=== PATIENT | female | born 1965 | race Caucasian/White ===

== ENCOUNTER 2016-12-13 13:21 | Emergency (ER) | payer MEDICARE, OTHER ==
[2016-12-13 13:33] VITALS: BP 125/82; PULSE 84; TEMP 98.1; BMI 23.8
[2016-12-13] MEDS ORDERED: KETOROLAC TROMETHAMINE 60 MG/2 ML VIAL IM ONE (14:01)
[2016-12-13] MEDS ORDERED: CYCLOBENZAPRINE HCL 10 MG TABLET (FP) PO ONE (14:01)
--- NOTE | 2016-12-13 14:02 | PDOC ---
History of Present Illness - General Chief Complaint: Pain Stated Complaint: LT SIDE PAIN Time Seen by Provider: 12/13/16 13:55 History Source: Patient - History of Present Illness Occurred: reports: other Severity: reports: moderate Pain Location: reports: back Past History - Past Medical History Allergies/Adverse Reactions: Allergies Allergy/AdvReac Type Severity Reaction Status Date / Time No Known Allergies Allergy Verified 12/13/16 13:28 Home Medications: Ambulatory Orders Cyclobenzaprine HCl [Flexeril 10 mg] 10 mg PO TID PRN #9 tablet 12/13/16 Ibuprofen [Motrin -] 600 mg PO QID #28 tablet 12/13/16 Other medical history: NONE - Suicide/Smoking/Psychosocial Hx Smoking History: Never smoked Information on smoking cessation initiated: No Hx Alcohol Use: No Drug/Substance Use Hx: No Substance Use Type: None Trauma Specific PMHX - Complaint Specific PMHX Arthritis: No Back Injury: No Neck Injury: No Hx Sacro Iliac Joint Dysfunction: No Review of Systems - Review of Systems Constitutional: No: Chills, Fever ABD/GI: No: Nausea, Vomiting, Abdominal cramping : No: Dysuria, Flank Pain, Hematuria Musculoskeletal: Yes: Back Pain. No: Muscle Weakness *Physical Exam - Vital Signs Last Vital Signs Temp Pulse Resp BP Pulse Ox 98.1 F 84 18 125/82 100 12/13/16 13:30 12/13/16 13:30 12/13/16 13:30 12/13/16 13:30 12/13/16 13:30 - Physical Exam General Appearance: Yes: Appropriately Dressed, Mild Distress HEENT: positive: Normal Voice Neck: positive: Supple Respiratory/Chest: negative: Respiratory Distress Gastrointestinal/Abdominal: positive: Soft. negative: Tender, Pulsatile Mass Musculoskeletal: positive: Vertebral Tenderness (mild ttp to L mid back). negative: CVA Tenderness Extremity: positive: Normal Inspection Integumentary: positive: Dry, Warm Neurologic: positive: Fully Oriented, Alert, Normal Mood/Affect Medical Decision Making - Medical Decision Making 12/13/16 14:02 51 yo F, no sig hx, here w/ back pain. Pt complaining of left mid back pain that started several days ago, achy and non-radiating, with an intensity of 7 out of 10 and worse with movement. No dysuria, hematuria, nausea, vomiting, fever or chills, leg weakness, bowel or bladder incontinence or saddle anesthesia. Had similar pain last year that was treated with flexeril and naproxen, which relieved sxs per pt. No h/o renal stones See exam Back pain, recurrent M/l MSK, unlikely renal stone or infxn -pain control in ED>reassess 12/13/16 14:02 12/13/16 14:59 Pt feeling better, will dc w/ meds *DC/Admit/Observation/Transfer Diagnosis at time of Disposition: Low back pain Qualifiers: Chronicity: acute Back pain laterality: left Sciatica presence: without sciatica Qualified Code(s): M54.5 - Low back pain - Discharge Dispostion Disposition: HOME Condition at time of disposition: Improved - Prescriptions Prescriptions: Cyclobenzaprine HCl [Flexeril 10 mg] 10 mg PO TID PRN #9 tablet PRN Reason: Back Pain Ibuprofen [Motrin -] 600 mg PO QID #28 tablet - Referrals Referrals: Mallory Posada MD [Primary Care Provider] - - Patient Instructions Printed Discharge Instructions: DI for Low Back Pain Additional Instructions: Take medications as directed for pain and follow-up with your doctor
[2016-12-13] MEDS ORDERED: CYCLOBENZAPRINE HCL 10 MG TABLET (FP) ONE (14:06)
[2016-12-13] MEDS ORDERED: KETOROLAC TROMETHAMINE 60 MG/2 ML VIAL ONE (14:06)
== END 2016-12-13 15:05 | disposition home or self-care (01) ==
LOC: JERFT 13:21
PROC: 3E0233Z Introduction of Anti-inflammatory into Muscle, Percutaneous Approach (ICD-10-PCS; principal; 2016-12-13)
DX: M54.5 Low back pain (principal)
CPT/HCPCS: 96372; 99281-25

== ENCOUNTER 2017-08-19 09:53 | Emergency (ER) | payer OTHER ==
[2017-08-19 09:56] VITALS: BP 116/79; PULSE 99; TEMP 98.6; BMI 20.8
--- NOTE | 2017-08-19 10:26 | PDOC ---
History of Present Illness - General Chief Complaint: Vaginal Sxs Stated Complaint: URINARY PROBLEM Time Seen by Provider: 08/19/17 10:18 History Source: Patient Exam Limitations: No Limitations - History of Present Illness Initial Comments: 08/19/17 10:36 Came to emergency department for evaluation of white thick vaginal drainage and itching 2 days. Has had yeast infections in the past and feels has same. Has tried no medication for relief of symptoms. Denies fever, is not sexually active , no abdominal pain Timing/Duration: unsure, 24 hours Severity: mild, moderate Associated Symptoms: reports: denies symptoms Past History - Travel Traveled outside of the country in the last 30 days: No Close contact w/someone who was outside of country & ill: No - Past Medical History Allergies/Adverse Reactions: Allergies Allergy/AdvReac Type Severity Reaction Status Date / Time No Known Allergies Allergy Verified 08/19/17 09:54 Home Medications: Ambulatory Orders Fluconazole [Diflucan] 150 mg PO ONCE #2 tablet 08/19/17 COPD: No DVT: No - Suicide/Smoking/Psychosocial Hx Smoking History: Never smoked Have you smoked in the past 12 months: No Information on smoking cessation initiated: No Hx Alcohol Use: No Drug/Substance Use Hx: No Substance Use Type: None Review of Systems - Review of Systems Able to Perform ROS?: Yes Is the patient limited Tamazight proficient: Yes Constitutional: Yes: See HPI. No: Symptoms Reported, Chills, Fever, Loss of Appetite, Malaise HEENTM: No: Symptoms Reported Respiratory: No: Symptoms reported Musculoskeletal: Yes: Symptoms Reported Integumentary: Yes: Symptoms Reported, See HPI, Bruising (to right groin status post angiogram 10 days ago, is healing), Pruritus, Other All Other Systems: Reviewed and Negative *Physical Exam - Vital Signs Last Vital Signs Temp Pulse Resp BP Pulse Ox 98.6 F 99 H 18 116/79 97 08/19/17 09:54 08/19/17 09:54 08/19/17 09:54 08/19/17 09:54 08/19/17 09:54 - Physical Exam General Appearance: Yes: Nourished, Appropriately Dressed, Apparent Distress, Mild Distress HEENT: positive: WALLY, Normal ENT Inspection, TMs Normal, Pharynx Normal Neck: positive: Tender, Supple Respiratory/Chest: positive: Lungs Clear Cardiovascular: positive: Regular Rate Extremity: positive: Normal Inspection Integumentary: positive: Normal Color, Warm, Other (mild erythema noted to fall the, with white thick drainage noted. Knee and and vaginal vault. No ulcerations , no foul odor, internal exam deferred) Neurologic: positive: hvac lead II-XII NML intact, Fully Oriented, Alert, Normal Mood/ Affect, Normal Response, Motor Strength 5/5 *DC/Admit/Observation/Transfer Diagnosis at time of Disposition: Alexia infection - Discharge Dispostion Disposition: HOME Condition at time of disposition: Stable Decision to Admit order: No - Prescriptions Prescriptions: Fluconazole [Diflucan] 150 mg PO ONCE #2 tablet - Referrals Referrals: Mallory Posada MD [Primary Care Provider] - - Patient Instructions Printed Discharge Instructions: DI for Vaginal Yeast Infection Additional Instructions: Rest, drink lots of fluids: Teas, water, soups Avoid contact with others until fevers and symptoms resolved Lots of handwashing and good hygiene Continue [id number] medications for symptomatic relief- Monistat, vaginal cell, creams to help soothe itching and chafing Tylenol or Motrin for fever and pain Diflucan, 150 mg tablet 1 dose for treatment. May repeat in one week if symptoms not completely resolved Followup with private physician / [employer] doctor in one week for reevaluation Return to emergency department for worsened symptoms, fevers, dehydration - Post Discharge Activity Forms/Work/School Notes: Back to Work
== END 2017-08-19 10:52 | disposition home or self-care (01) ==
LOC: JERFT 09:53
DX: B37.3 Candidiasis of vulva and vagina (principal)
CPT/HCPCS: 99281-25

== ENCOUNTER 2020-10-12 10:55 | Emergency (ER) | payer OTHER ==
[2020-10-12 11:27] VITALS: TEMP 98.4; BMI 22.8
[2020-10-12 13:23] LABS: BASO % 0.9 % (0-2.0); EOS % 2.3 % (0-4.5); HEMATOCRIT 42.5 % (32.4-45.2); LYMPH % 39.9 % (8-40); MCH 29.7 pg (25.7-33.7); MCHC 32.9 g/dl (32.0-36.0); MEAN CELL VOLUME 90.2 fl (80-96); MEAN PLT VOLUME 8.2 fl (7.5-11.1); MONO % 9.2 % (3.8-10.2); NEUT % 47.7 % (42.8-82.8); PLATELET COUNT 248 10^3/uL (134-434); RBC 4.71 M/mm3 (3.60-5.2); RDW 13.2 % (11.6-15.6); WHITE BLOOD COUNT 4.4 K/mm3 (4.0-10.0)
[2020-10-12 13:30] LABS: INR 1.01 (0.83-1.09); PROTHROMBIN TIME (PATIENT) 12.2 SEC (9.7-13.0)
[2020-10-12 13:33] LABS: ACTIVATED PTT 28.4 SECONDS (25.2-36.5)
[2020-10-12 13:36] LABS: ALBUMIN 3.8 g/dl (3.4-5.0); BLOOD UREA NITROGEN 13.6 mg/dL (7-18); CALCIUM 8.9 mg/dL (8.5-10.1)
[2020-10-12 13:40] LABS: CREATININE 0.6 mg/dL (0.55-1.3)
[2020-10-12 13:41] LABS: BILIRUBIN,TOTAL 0.4 mg/dL (0.2-1); TOT PROT 7.1 g/dl (6.4-8.2)
[2020-10-12] MEDS ORDERED: SODIUM CHLORIDE 0.9% 500 ML INFUS.BAG IV ONE (13:54)
[2020-10-12 15:12] LABS: URINE APPEARANCE CLEAR; URINE BILIRUBIN NEGATIVE (NEGATIVE); URINE COLOR YELLOW; URINE GLUCOSE (UA) NEGATIVE (NEGATIVE); URINE KETONE NEGATIVE (NEGATIVE); URINE LEUK ESTERASE NEGATIVE (NEGATIVE); URINE NITRITE NEGATIVE (NEGATIVE); URINE PROTEIN NEGATIVE (NEGATIVE); URINE UROBILINOGEN 0.2 mg/dL (0.2-1.0)
[2020-10-12 18:35] VITALS: BP 138/90; PULSE 70
== END 2020-10-12 18:25 | disposition home or self-care (01) ==
LOC: JER 10:55
DX: K92.1 Melena (principal); R10.30 Lower abdominal pain, unspecified; R19.7 Diarrhea, unspecified
CPT/HCPCS: 36415; 74177-TC; 80053; 81003; 82272; 85025; 85610; 85730; 87086; 99285-25; Q9967

== ENCOUNTER 2021-02-01 09:35 | Emergency (ER) | payer OTHER ==
[2021-02-01 09:45] VITALS: TEMP 97.6; BMI 22.6
[2021-02-01] MEDS ORDERED: MECLIZINE HCL 25 MG TABLET (FP) PO ONE (10:11)
[2021-02-01] MEDS ORDERED: MECLIZINE HCL 25 MG TABLET (FP) ONE (10:39)
[2021-02-01 11:17] LABS: HEMATOCRIT 39.1 % (32.4-45.2); HEMOGLOBIN 13.7 GM/dL (10.7-15.3); MCH 30.6 pg (25.7-33.7); MCHC 35.2 g/dl (32.0-36.0); MEAN PLT VOLUME 7.8 fl (7.5-11.1); PLATELET COUNT 255 10^3/uL (134-434); RBC 4.49 M/mm3 (3.60-5.2); RDW 13.1 % (11.6-15.6); WHITE BLOOD COUNT 3.5 K/mm3 (4.0-10.0)
[2021-02-01 11:38] LABS: CHLORIDE 109 mmol/L (98-107); SODIUM 140 mmol/L (136-145)
[2021-02-01 11:40] LABS: ALBUMIN 3.9 g/dl (3.4-5.0); ANION GAP 7 MMOL/L (8-16); CALCIUM 9.4 mg/dL (8.5-10.1); CO2 24 mmol/L (21-32); GLUCOSE,RANDOM 116 mg/dL (74-106)
[2021-02-01 11:41] LABS: BLOOD UREA NITROGEN 17.2 mg/dL (7-18)
[2021-02-01 11:43] LABS: CREATININE 0.7 mg/dL (0.55-1.3)
[2021-02-01 11:44] LABS: SGOT/AST 14 U/L (15-37); SGPT/ALT 21 U/L (13-61)
[2021-02-01 11:45] LABS: BILIRUBIN,TOTAL 0.3 mg/dL (0.2-1); TOT PROT 7.2 g/dl (6.4-8.2)
[2021-02-01 11:46] LABS: ALK PHOS 97 U/L (45-117)
[2021-02-01 13:07] LABS: ANISOCYTOSIS 0; HELMET CELLS 0; HOWELL-JOLLY BODIES 0; MACROCYTOSIS 0; OVALOCYTE 0; PLATELET ESTIMATE NORMAL; ROULEAU 0; SICKELED CELLS 0; TARGET CELLS 0; TEAR DROP CELLS 0; TOXIC GRANULATION 0
[2021-02-01 14:18] VITALS: BP 110/86; PULSE 75
== END 2021-02-01 14:00 | disposition home or self-care (01) ==
LOC: JER 09:35
DX: R42 Dizziness and giddiness (principal)
CPT/HCPCS: 36415; 80053; 82550; 84484; 85025; 93005; 93010; 99284-25

== ENCOUNTER 2021-09-18 11:59 | Emergency (ER) | payer OTHER ==
[2021-09-18 12:19] VITALS: BP 131/77; PULSE 97; TEMP 98.5; BMI 22.3
== END 2021-09-18 12:50 | disposition home or self-care (01) ==
LOC: JERFT 11:59 → JER 11:59 → JERFT 12:50
DX: H00.012 Hordeolum externum right lower eyelid (principal)
CPT/HCPCS: 99281-25

== ENCOUNTER 2022-07-05 11:52 | Emergency (ER) | payer OTHER ==
[2022-07-05 12:05] VITALS: BMI 22.8
[2022-07-05 14:28] LABS: EOS % 2.5 % (0-4.5); HEMATOCRIT 39.8 % (32.4-45.2); HEMOGLOBIN 13.8 GM/dL (10.7-15.3); LYMPH % 43.5 % (8-40); MCH 30.3 pg (25.7-33.7); MCHC 34.7 g/dl (32.0-36.0); MEAN CELL VOLUME 87.1 fl (80-96); MEAN PLT VOLUME 8.6 fl (7.5-11.1); MONO % 9.3 % (3.8-10.2); NEUT % 43.7 % (42.8-82.8); PLATELET COUNT 274 10^3/uL (134-434); RBC 4.57 M/mm3 (3.60-5.2); RDW 13.3 % (11.6-15.6); URINE APPEARANCE CLEAR; URINE BILIRUBIN NEGATIVE (NEGATIVE); URINE COLOR YELLOW; URINE GLUCOSE (UA) NEGATIVE (NEGATIVE); URINE KETONE NEGATIVE (NEGATIVE); URINE LEUK ESTERASE NEGATIVE (NEGATIVE); URINE NITRITE NEGATIVE (NEGATIVE); URINE PROTEIN NEGATIVE (NEGATIVE); URINE UROBILINOGEN 0.2 mg/dL (0.2-1.0); WHITE BLOOD COUNT 4.3 K/mm3 (4.0-10.0)
[2022-07-05 14:37] LABS: INR 1.03 (0.83-1.09); PROTHROMBIN TIME (PATIENT) 11.9 SEC (9.7-13.0)
[2022-07-05 14:40] LABS: ACTIVATED PTT 31.7 SECONDS (25.2-36.5)
[2022-07-05 15:07] LABS: ALBUMIN 3.9 g/dl (3.4-5.0); BLOOD UREA NITROGEN 18.1 mg/dL (7-18); CALCIUM 9.4 mg/dL (8.5-10.1); MAGNESIUM 2.2 mg/dL (1.8-2.4)
[2022-07-05 15:09] LABS: CREATININE 0.7 mg/dL (0.55-1.3)
[2022-07-05 15:10] LABS: BILIRUBIN,TOTAL 0.3 mg/dL (0.2-1); TOT PROT 7.4 g/dl (6.4-8.2)
[2022-07-05 15:39] VITALS: BP 129/86; PULSE 71; RESP 19; TEMP 98.1
== END 2022-07-05 16:06 | disposition home or self-care (01) ==
LOC: JER 11:52
DX: R00.2 Palpitations (principal); Z20.822 Contact with and (suspected) exposure to COVID-19
CPT/HCPCS: 0241U-QW; 36415; 71045-TC-FY; 80053; 81003; 83735; 84443; 84484; 85025; 85610; 85730; 87086; 93005; 93010; 99285-25